=== PATIENT | male | born 1955 ===

== ENCOUNTER 2019-05-23 20:45 | Inpatient (IN) | payer MEDICARE, OTHER, SELFPAY | END 2019-05-28 19:56 | disposition home or self-care (01) | DRG 871 | LOC: MEDSURG 05-28 09:22 | PROVIDERS: Admitting Provider Student in an Organized Health Care Education/Training Program; Family Provider Family Medicine; PCP Family Medicine; Referring Provider Family Medicine; Visit Provider Student in an Organized Health Care Education/Training Program | DX: A41.9 Sepsis, unspecified organism (principal); J18.9 Pneumonia, unspecified organism; N18.6 End stage renal disease; G93.41 Metabolic encephalopathy; I13.2 Hypertensive heart and chronic kidney disease with heart failure and with stage 5 chronic kidney disease, or end stage renal disease; T85.71XA Infection and inflammatory reaction due to peritoneal dialysis catheter, initial encounter; A04.5 Campylobacter enteritis; X58.XXXA Exposure to other specified factors, initial encounter; Y83.9 Surgical procedure, unspecified as the cause of abnormal reaction of the patient, or of later complication, without mention of misadventure at the time of the procedure; I25.10 Atherosclerotic heart disease of native coronary artery without angina pectoris; E11.51 Type 2 diabetes mellitus with diabetic peripheral angiopathy without gangrene; Z79.82 Long term (current) use of aspirin; Z79.4 Long term (current) use of insulin; Z95.1 Presence of aortocoronary bypass graft; I25.2 Old myocardial infarction ==

== ENCOUNTER 2019-11-14 09:31 | Outpatient (CLI) | payer MEDICARE, OTHER, SELFPAY | END 2019-11-14 09:32 | disposition home or self-care (01) | LOC: WOUND 09:37 | PROVIDERS: Family Provider Family Medicine; PCP Family Medicine; Visit Provider Nurse Practitioner Family | DX: E11.621 Type 2 diabetes mellitus with foot ulcer (principal); L97.522 Non-pressure chronic ulcer of other part of left foot with fat layer exposed | CPT/HCPCS: 11042; 87070; 87077; 87176; 87186; 87205; G0463 ==

== ENCOUNTER 2019-11-19 15:01 | Outpatient (CLI) | payer MEDICARE, OTHER, SELFPAY ==
--- NOTE | 2019-11-19 15:09 | XR_ITS ---
WS: [id number] FOOT LEFT TECHNIQUE: 3 views of the left foot CLINICAL INFORMATION: PAIN,REDNESS, NON-HEALING ULCER COMPARISON: None. FINDINGS: Soft tissue edema with ulceration overlying the lateral foot at the level of the fourth metatarsal ba se. 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 Hypertrophic changes with dystroph ic calcification deep to the ulceration at the level of the prior amputation. Slight irregularity inv olving the base of the fourth metatarsal. No definite evidence of acute osteomyelitis. Recommend inte rval follow-up. Plantar and Achilles calcaneal spurring. Vascular calcification. Mild flattening of t he talus. XR/XR foot LT min 3V* [id number] IMPRESSION: Ulceration at the base of the fourth metatarsal. Underlying bony remodeling wit h postoperative changes. No definite evidence of osteomyelitis. Recommend inter michael follow-up.
== END 2019-11-19 15:02 | disposition home or self-care (01) ==
LOC: RADWPI 15:06
PROVIDERS: Family Provider Family Medicine; PCP Family Medicine; Visit Provider Nurse Practitioner Family
DX: M79.672 Pain in left foot (principal); L51.8 Other erythema multiforme; L97.529 Non-pressure chronic ulcer of other part of left foot with unspecified severity
CPT/HCPCS: 73630

== ENCOUNTER 2019-11-21 10:23 | Outpatient (CLI) | payer MEDICARE, OTHER, SELFPAY | END 2019-11-21 10:24 | disposition home or self-care (01) | LOC: WOUND 10:26 | PROVIDERS: Family Provider Family Medicine; PCP Family Medicine; Visit Provider Nurse Practitioner Family | DX: E11.621 Type 2 diabetes mellitus with foot ulcer (principal); L97.522 Non-pressure chronic ulcer of other part of left foot with fat layer exposed | CPT/HCPCS: 11042 ==

== ENCOUNTER 2019-11-28 08:38 | Outpatient (CLI) | payer MEDICARE, OTHER, SELFPAY ==
--- NOTE | 2019-11-28 08:47 | NM_ITS ---
WS: [id number] NUCLEAR MEDICINE 3 PHASE BONE SCAN Radiopharmaceutical: 26.1 Tc-99m MDP mCi IV Injection site: Right wrist Postinjection imaging delay: 2 hr CLINICAL INFORMATION: PAIN, REDNESS, NONHEALING ULCER COMPARISON: None. FINDINGS: Bone lesions: Diffuse bony uptake on the delayed imaging involving the left lateral midfoot consisten t with osteomyelitis. Correlating with the recent radiograph this likely involves the fourth metatars al and lateral cuneiform/residual cuboid. Small amount of superimposed cellulitis with increased soft tissue flow on the blood flow and blood pool imaging. Soft tissue contours: Normal. Kidneys: Normal. Other findings: None. NM/NM bone 3 phase [id number] IMPRESSION: Osteomyelitis involving the left lateral midfoot. This can be further evaluated MRI for better anatomic detail.
== END 2019-11-28 08:39 | disposition home or self-care (01) ==
PROVIDERS: Family Provider Family Medicine; PCP Family Medicine; Visit Provider Nurse Practitioner Family
DX: L53.8 Other specified erythematous conditions; M79.672 Pain in left foot; L97.529 Non-pressure chronic ulcer of other part of left foot with unspecified severity; M86.8X7 Other osteomyelitis, ankle and foot
CPT/HCPCS: 78315; A9561

== ENCOUNTER 2019-11-28 13:28 | Outpatient (CLI) | payer MEDICARE, OTHER, SELFPAY | END 2019-11-28 13:29 | disposition home or self-care (01) | LOC: WOUND 13:29 | PROVIDERS: Family Provider Family Medicine; PCP Family Medicine; Visit Provider Nurse Practitioner Family | DX: E11.621 Type 2 diabetes mellitus with foot ulcer (principal); L97.522 Non-pressure chronic ulcer of other part of left foot with fat layer exposed; M79.672 Pain in left foot; L53.8 Other specified erythematous conditions; L97.529 Non-pressure chronic ulcer of other part of left foot with unspecified severity; M86.8X7 Other osteomyelitis, ankle and foot | CPT/HCPCS: 11042; 78315; A9561 ==

== ENCOUNTER 2019-12-05 13:55 | Outpatient (CLI) | payer MEDICARE, OTHER, SELFPAY | END 2019-12-05 13:56 | disposition home or self-care (01) | LOC: WOUND 13:57 | PROVIDERS: Family Provider Family Medicine; PCP Family Medicine; Visit Provider Surgery | DX: E11.621 Type 2 diabetes mellitus with foot ulcer (principal); L97.522 Non-pressure chronic ulcer of other part of left foot with fat layer exposed; L97.512 Non-pressure chronic ulcer of other part of right foot with fat layer exposed | CPT/HCPCS: 11042 ==

== ENCOUNTER 2019-12-12 13:17 | Outpatient (CLI) | payer MEDICARE, OTHER, SELFPAY | END 2019-12-12 13:18 | disposition home or self-care (01) | LOC: WOUND 13:18 | PROVIDERS: Family Provider Family Medicine; PCP Family Medicine; Visit Provider Emergency Medicine | DX: E11.621 Type 2 diabetes mellitus with foot ulcer (principal); L97.522 Non-pressure chronic ulcer of other part of left foot with fat layer exposed; L97.512 Non-pressure chronic ulcer of other part of right foot with fat layer exposed; I25.810 Atherosclerosis of coronary artery bypass graft(s) without angina pectoris | CPT/HCPCS: 11042; 80053; 80061; 83880; 84443; 85025; L3260 ==